=== PATIENT | female | born 1960 | race Caucasian/White ===

== ENCOUNTER → 2020-11-23 09:22 | Outpatient (CLI) | payer OTHER, SELFPAY ==
--- NOTE | 2020-11-23 | DI.RAD.S_ITS ---
PROCEDURE: XR LUMBAR SPINE 2-3V INDICATIONS: Low back pain TECHNIQUE: 3 views of the lumbar spine were acquired. COMPARISON: [facility], , L-SPINE 2-3 VIEWS, 02/06/2018, 14:11. FINDINGS: Bones: 5 [id number] vertebrae are present. Mild dextroconvex scoliotic curvature is seen. Minimal retrolisthesis is seen at L1-L2 and L2-L3. No vertebral body compression fractures. No suspicious bony lesions. There is moderate disc space narrowing at T12-L1 and L1-L2 and at L5-S1. Bridging anterior osteophytes are seen at T12-L1 and L1-L2. Lower lumbar spine facet arthropathy is seen. Age-appropriate lower thoracic spine degenerative changes are seen. Moderate degenerative change is seen of the sacroiliac joints. Soft tissues: Overlying bowel gas pattern is normal. No suspicious soft tissue calcifications. IMPRESSION: Dextroconvex scoliotic curvature and multiple levels of degenerative change are seen, which are slightly progressed compared to 2018. Moderate degenerative change can be seen of the sacroiliac joints. Dictated by: Clif Salmeron M.D. on 11/23/2020 at 9:04 Approved by: Clif Salmeron M.D. on 11/23/2020 at 9:05
== END ==
PROVIDERS: PCP Family Medicine; Referring Provider Family Medicine; Visit Provider Family Medicine
DX: R15.9 Full incontinence of feces (principal); R15.2 Fecal urgency; M54.5 Low back pain; M41.9 Scoliosis, unspecified; M47.817 Spondylosis without myelopathy or radiculopathy, lumbosacral region; G89.29 Other chronic pain
CPT/HCPCS: 72100